=== PATIENT | male | born 1985 | race African-American/Black ===

== ENCOUNTER 2024-01-14 13:40 | Emergency (ER) | payer OTHER ==
[~2024-01-14] VITALS: Ht 172.7 cm; Wt 124.5 kg
[2024-01-14 15:20] VITALS: BP 143/83; TEMP 98; O2SAT 99
== END 2024-01-14 15:54 | disposition home or self-care (01) ==
LOC: EDBD 13:40 → M ED 13:40
DX: R00.2 Palpitations (principal); I10 Essential (primary) hypertension; I45.10 Unspecified right bundle-branch block